=== PATIENT | female | born 1995 | race Caucasian/White ===

== ENCOUNTER 2021-12-10 18:00 | Inpatient (IN) | payer BC, OTHER ==
[2021-12-10] MEDS ORDERED: Diphenoxylate HCl/Atropine Tablet PO PRN ×2 (22:32)
[2021-12-10] MEDS ORDERED: Lidocaine 1% (PF) 30 ML VIAL SC PRN (22:32)
[2021-12-10] MEDS ORDERED: Carboprost 250 MCG/ML AMP IM PRN (22:32)
[2021-12-10] MEDS ORDERED: Acetaminophen 500 MG TAB PO PRN (22:32)
[2021-12-10] MEDS ORDERED: HYDROcodone/Acetaminophen 5/325 mg Tablet PO PRN ×2 (22:32)
[2021-12-10] MEDS ORDERED: hydrALAZINE 20 MG/ML VIAL SLOW IVP PRN (22:32)
[2021-12-10] MEDS ORDERED: Misoprostol 200 MCG TAB PR PRN (22:32)
[2021-12-10] MEDS ORDERED: Ondansetron PF 4 MG/2 ML Vial IVP PRN (22:32)
[2021-12-10] MEDS ORDERED: Ibuprofen 800 MG TAB PO PRN (22:32)
[2021-12-10] MEDS ORDERED: Labetalol HCl 100 MG/20 ML VIAL SLOW IVP PRN (22:32)
[2021-12-10] MEDS ORDERED: Promethazine HCl 25 MG/ML VIAL IM PRN (22:32)
[2021-12-10] MEDS ORDERED: Misoprostol 100 MCG TAB ONE (23:22)
[2021-12-10 23:29] VITALS: BMI 40.6
[2021-12-10 23:42] LABS: Hemoglobin 11.4 g/dL (12.0-15.5); Mean Corpuscular HGB CONC 34.4 g/dL (32.0-36.0); Mean Corpuscular Hemoglobin 31.5 pg (27.0-33.0); Mean Corpuscular Volume 91.4 fl (81.6-98.3); Mean Platelet Volume 11.4 fl (7.4-10.4); Platelet Count 273 10x3/uL (150-450); RBC Distribution Width 14.3 % (11.5-14.5); Red Blood Cell (RBC) Count 3.62 10x6/uL (3.90-5.03); White Blood Cell (WBC) Count 10.8 10x3/uL (3.5-10.5)
[2021-12-10 23:59] LABS: Hep B Surf Ag Non-Reactive S/CO (NonReactive); Syphilis Antibody Nonreactive (Nonreactive); Syphilis Antibody Index 0.02 S/CO (<1.00 Non-Reactive)
[2021-12-11 00:04] LABS: HBSAg Index 0.16 S/CO (0-0.99)
[2021-12-11] MEDS: Misoprostol 100 MCG TAB VAG SCH ×5 (00:18→17:27)
[2021-12-11 00:50] LABS: ALT (SGPT) 15 U/L (8-55); AST (SGOT) 19 U/L (5-34); Albumin 3.8 g/dL (3.5-5.0); Alkaline Phosphatase 157 U/L (40-110); Anion Gap 17 mmol/L (10-20); Bilirubin, Total 0.4 mg/dL (0.2-1.2); Calc. Creatinine Clearance 244 mL/min (70-130); Calcium 9.7 mg/dL (7.8-10.44); Carbon Dioxide 18 mmol/L (22-29); Chloride 107 mmol/L (98-107); Globulin 2.8 g/dL (2.4-3.5); Glucose 81 mg/dL (70-105); Potassium 4.2 mmol/L (3.5-5.1); Protein, Total 6.6 g/dL (6.0-8.3); Sodium 138 mmol/L (136-145); Uric Acid 4.7 mg/dL (2.6-6.0)
[2021-12-11 01:19] LABS: BUN (Urea Nitrogen) 7 mg/dL (7.0-18.7)
[2021-12-11 01:36] LABS: Creatinine, Urine 33.21 mg/dL (47-110); Protein, Urine Random Quant Less than 10 mg/dL (1-14)
[2021-12-11] MEDS: Butorphanol Tartrate 1 MG/ML VIAL SLOW IVP PRN ×2 (03:47→13:03)
[2021-12-11] MEDS ORDERED: Terbutaline Sulfate 1 MG/ML VIAL ONE (05:26)
[2021-12-11] MEDS ORDERED: Terbutaline Sulfate 1 MG/ML VIAL SC SCH (05:45)
[2021-12-11] MEDS: NS w/ Oxytocin 30 units 500 ML IV SCH ×2 (06:27→17:27)
[2021-12-11] MEDS: Lactated Ringer's 1,000 ML IV SCH ×3 (07:49→11:39)
[2021-12-11 18:01] LABS: pH (Cord, venous) 7.302 (7.250-7.350)
[2021-12-11] MEDS ORDERED: Ibuprofen 800 MG TAB PO SCH (19:00)
[2021-12-11] MEDS ORDERED: Bisacodyl 10 MG SUPP PR PRN (21:47)
[2021-12-11] MEDS ORDERED: HYDROcodone/Acetaminophen 5/325 mg Tablet PO PRN ×2 (21:47)
[2021-12-11] MEDS ORDERED: NS w/ Oxytocin 30 units 500 ML IV SCH (21:47)
[2021-12-11] MEDS ORDERED: Ondansetron PF 4 MG/2 ML Vial IVP PRN (21:47)
[2021-12-11] MEDS ORDERED: Boostrix 0.5 ML (Tdap) VIAL IM ONE (21:47)
[2021-12-11] MEDS ORDERED: Benzocaine-Menthol 82.5 ML CAN TOP PRN (21:47)
[2021-12-11] MEDS ORDERED: Milk Of Magnesia 30 ML UDCUP PO PRN (21:47)
[2021-12-11] MEDS ORDERED: hydrALAZINE 20 MG/ML VIAL SLOW IVP PRN (21:47)
[2021-12-11] MEDS ORDERED: Misoprostol 200 MCG TAB VAG PRN (21:47)
[2021-12-11] MEDS ORDERED: Lanolin Ointment 7 GM TUBE TOP PRN (21:47)
[2021-12-11] MEDS ORDERED: Docusate 100 MG CAP PO SCH (22:00)
[2021-12-11] MEDS ORDERED: Ferrous Sulfate 325 MG TAB PO SCH (22:00)
[2021-12-12] MEDS: Ibuprofen 800 MG TAB PO SCH ×3 (05:24→22:21)
[2021-12-12] MEDS: Ferrous Sulfate 325 MG TAB PO SCH (07:37)
[2021-12-12] MEDS: Prenatal Vitamin 1 TAB PO SCH (08:54)
[2021-12-12] MEDS: Docusate 100 MG CAP PO SCH ×2 (08:54→22:21)
[2021-12-13] MEDS: Ibuprofen 800 MG TAB PO SCH ×2 (05:34→14:06)
[2021-12-13 07:43] VITALS: BP 115/65; TEMP 98.2
[2021-12-13] MEDS: Ferrous Sulfate 325 MG TAB PO SCH ×2 (07:59→18:38)
[2021-12-13] MEDS: Docusate 100 MG CAP PO SCH (08:29)
[2021-12-13] MEDS: Prenatal Vitamin 1 TAB PO SCH (08:29)
== END 2021-12-13 20:06 | disposition home or self-care (01) | DRG 807 ==
LOC: CSHLD 22:07 → CSHPP 12-11 20:30
PROVIDERS: ADMIT Obstetrics & Gynecology; ATTEND Obstetrics & Gynecology
PROC: 10E0XZZ Delivery of Products of Conception, External Approach (ICD-10-PCS; principal; 2021-12-11)
PROC: 0KQM0ZZ Repair Perineum Muscle, Open Approach (ICD-10-PCS; 2021-12-11)
PROC: 10907ZC Drainage of Amniotic Fluid, Therapeutic from Products of Conception, Via Natural or Artificial Opening (ICD-10-PCS; 2021-12-11)
PROC: 3E0P7VZ Introduction of Hormone into Female Reproductive, Via Natural or Artificial Opening (ICD-10-PCS; 2021-12-11)
DX: O13.4 Gestational [pregnancy-induced] hypertension without significant proteinuria, complicating childbirth (principal); Z37.0 Single live birth; Z3A.38 38 weeks gestation of pregnancy; O70.1 Second degree perineal laceration during delivery
CPT/HCPCS: 36415; 80053; 82570; 82805; 84156; 84550; 85027; 86780; 86850; 86900; 86901; 87340; J0595; J2001; J2590; J3105; J7120